=== PATIENT | female | born 2000 | race African-American/Black ===

== ENCOUNTER 2018-02-21 13:46 | Emergency (ER) | payer MEDICAID, OTHER ==
[~2018-02-21] VITALS: Ht 177.8 cm; Wt 93.0 kg
[2018-02-21] MEDS ORDERED: IBUPROFEN 600MG TABLET PO ONE (14:45)
[2018-02-21 14:46] VITALS: BP 135/65
== END 2018-02-21 19:54 | disposition left against medical advice (07) ==
LOC: ER 13:48
DX: S40.022A Contusion of left upper arm, initial encounter (principal); M25.562 Pain in left knee; J45.909 Unspecified asthma, uncomplicated; F12.10 Cannabis abuse, uncomplicated; V87.8XXA Person injured in other specified noncollision transport accidents involving motor vehicle (traffic), initial encounter; Y93.39 Activity, other involving climbing, rappelling and jumping off; Y92.89 Other specified places as the place of occurrence of the external cause; Y99.8 Other external cause status
CPT/HCPCS: 99282